=== PATIENT | female | born 1990 | race Caucasian/White ===

== ENCOUNTER 2017-08-19 01:41 | Emergency (ER) | payer OTHER ==
[~2017-08-19] VITALS: Ht 172.7 cm; Wt 113.6 kg
[2017-08-19 01:45] VITALS: TEMP 98
[2017-08-19 02:33] LABS: BASO # 0.1 (0.0-0.2); BASO % 0.4 % (0.0-2.0); EOS # 0.1 (0.0-0.7); EOS % 0.8 % (0-4.0); GRAN # 10.5 (1.4-6.5); HEMATOCRIT 41.8 % (37.0-47.0); HEMOGLOBIN 14.7 g/dl (12.5-16.0); LYMPH # 2.6 (1.2-3.4); LYMPH % 18.6 % (20.0-51.0); MEAN CELL VOLUME 93 fl (80.0-100.0); MEAN CORPUSCULAR HEMOGLOBIN 33 pg (27.0-31.0); MEAN CORPUSCULAR HGB CONC 35 g/dl (33.0-37.0); MEAN PLATELET VOLUME 8.7 fl (7.4-10.4); MONO # 0.8 (0.1-0.6); MONO % 5.7 % (1.7-9.3); PLATELET COUNT 284 K/mm3 (130-400); RED BLOOD COUNT 4.51 M/mm3 (4.10-5.30); REDCELL DISTRIBUTION WIDTH-CV 11.8 % (11.5-14.5)
[2017-08-19 02:47] LABS: ALBUMIN 4.5 gm/dL (3.5-5.0); BILIRUBIN,TOTAL 0.7 mg/dL (0.0-1.0); C-REACTIVE PROTEIN 0.6 mg/dL (0.0-0.9); CALCIUM 9.4 mg/dL (8.4-10.2); CREATININE, serum 0.8 mg/dL (0.52-1.25); POTASSIUM 3.9 mmol/L (3.4-5.0); TOTAL PROTEIN 8.1 gm/dL (6.4-8.2)
[2017-08-19 04:08] LABS: COLLECTION METHOD CLEAN CATCH
[2017-08-19 04:13] LABS: MUCOUS Present /lpf; PH 5 (5-8); SQUAMOUS EPITHELIAL 0-2 /hpf; URINE APPEARANCE Clear; URINE BACTERIA Rare /hpf; URINE BILIRUBIN Negative (NEGATIVE); URINE BLOOD 1+ (NEGATIVE); URINE COLOR Yellow; URINE GLUCOSE Negative (NEGATIVE); URINE KETONE Negative (NEGATIVE); URINE LEUKOCYTE ESTERASE Negative (NEGATIVE); URINE NITRATE Negative (NEGATIVE); URINE PROTEIN(semi-quant) Negative (NEGATIVE); URINE RBC 0-2 /hpf; URINE UROBILINOGEN Negative (NEGATIVE)
[2017-08-19 05:15] VITALS: BP 117/71; PULSE 69
== END 2017-08-19 05:20 | disposition home or self-care (01) ==
LOC: COL.ER 01:41
PROVIDERS: Emergency Medicine
DX: R10.11 Right upper quadrant pain (principal)
CPT/HCPCS: J1170; J1885; J2405; J7030; Q9967

== ENCOUNTER → 2017-08-20 | Outpatient (CLI) | payer OTHER | LOC: COL.RAD 10:59 | DX: K76.0 Fatty (change of) liver, not elsewhere classified (principal) ==

== ENCOUNTER → 2017-08-30 | Outpatient (CLI) | payer OTHER | LOC: COL.RAD 11:54 | DX: R10.13 Epigastric pain (principal) | CPT/HCPCS: A9537 ==

== ENCOUNTER 2017-11-12 07:33 | Day surgery (SDC) | payer OTHER ==
[~2017-11-12] VITALS: Ht 170.2 cm; Wt 117.7 kg
[2017-11-12] MEDS ORDERED: GLUCOPHAGE1000 MG PO (08:08)
[2017-11-12] MEDS ORDERED: ADIPEX-P37.5 MG PO (08:08)
[2017-11-12 08:12] VITALS: BP 118/86; PULSE 102; TEMP 98.1
[2017-11-12] MEDS ORDERED: LEVSIN0.125 M1 PO (09:28)
[2017-11-12] MEDS ORDERED: ZANTAC 150MG T150 MG PO (09:28)
[2017-11-12 09:40] VITALS: BP 119/65; PULSE 89; TEMP 97.7
[2017-11-12 09:55] VITALS: BP 110/66; PULSE 86
[2017-11-12 10:10] VITALS: BP 120/76; PULSE 90
== END 2017-11-12 10:25 | disposition home or self-care (01) ==
LOC: SDCO 07:33
DX: K64.4 Residual hemorrhoidal skin tags (principal); K44.9 Diaphragmatic hernia without obstruction or gangrene; K29.30 Chronic superficial gastritis without bleeding; K52.9 Noninfective gastroenteritis and colitis, unspecified
CPT/HCPCS: J2250; J3010; J7030

== ENCOUNTER 2019-10-06 10:41 | Day surgery (SDC) | payer OTHER ==
[2019-10-06] VITALS (7 sets, daily range): BP systolic 82–112; BP diastolic 49–92; PULSE 86–98; TEMP 98.2
[~2019-10-06] VITALS: Ht 170.2 cm; Wt 129.0 kg
[~2019-10-06 10:41] MED LIST: ADIPEX-P37.5 MG PO; GLUCOPHAGE1000 MG PO; LEVSIN0.125 M1 PO; ZANTAC 150MG T150 MG PO
[2019-10-06] MEDS ORDERED: NORCO 325 MG-51 TAB PO (13:55)
--- NOTE | 2019-10-06 14:55 | NUR ---
Pt to [facility] via cart from PACU. Pt drowsy, but awake. Pt rates pain to abdomen 2/10. Pt wanting to rest. Bandaids to abdomen x5 are clean, dry, and intact. IV infusing without difficulties. Will continue to monitor. Call light within reach.
--- NOTE | 2019-10-06 15:10 | NUR ---
Pt sleeping. Respirations even and unlabored. Will continue to monitor. Call light within reach.
--- NOTE | 2019-10-06 15:25 | NUR ---
Pt continues to rest. Denies needs. Call light within reach.
--- NOTE | 2019-10-06 15:40 | NUR ---
Pt awake. Sitting up. Pudding and ice water given per pt request. Will continue to monitor. Call light within reach.
--- NOTE | 2019-10-06 15:55 | NUR ---
Pt tolerating food and PO fluids without difficulties. Pt denies needs at this time. Call light within reach.
--- NOTE | 2019-10-06 16:10 | NUR ---
Pt up to restroom with stand by assist. Pt voids large amount without difficulties. Pt back to room. IV site discontinued with all parts intact. Pt up to dress.
--- NOTE | 2019-10-06 16:30 | NUR ---
Pt request pain medication prior to discharge, as she will have a drive and need to wait to have script filled. Nada 5/325mg 1 tablet po given per PRN orders. Pt states she has taken norco in past and has tolerated it ok. Discharge instructions reviewed. Pt voices understanding. Pt escorted to private car via wheel chair. Pt accompanied home by her brother.
== END 2019-10-06 16:30 | disposition home or self-care (01) ==
LOC: SDCO 10:41
DX: K80.10 Calculus of gallbladder with chronic cholecystitis without obstruction (principal); Z11.59 Encounter for screening for other viral diseases
CPT/HCPCS: J1100; J1885; J2250; J2405; J3010; J7120